=== PATIENT | female | born 2005 | race African-American/Black ===

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

== ENCOUNTER 2023-01-21 07:02 | Outpatient (CLI) | payer MEDICAID, SELFPAY ==
--- NOTE | 2023-01-21 07:00 | MR_ITS ---
WS: [id number] MRI RIGHT KNEE NONCONTRAST TECHNIQUE: Axial PD, coronal PD fat sat, coronal PD, sagittal PD, and sagittal PD fat-sat images obta ined. CLINICAL INFORMATION: S83.8X1A - Sprain of other specified parts of right knee,... COMPARISON: None. FINDINGS: Distal quadriceps and patella tendons are intact. High-grade tear of the ACL with a few normal fibers visualized distally. Edema along the ACL tunnel. Normal PCL. ACL contusion pattern involving the anterolateral femoral condyle and posterior lateral tibial platea u. Additional contusion involving the posterior medial tibial plateau. Tiny radial tear involving the anterior horn lateral meniscus. Medial meniscus appears intact. Small suprapatellar effusion. Normal patella. Normal medial and lateral patellar retinaculum. Small suprapatellar effusion. Normal medial and lateral collateral ligaments. Normal popliteal fossa. MR/MR knee RT wo con* [id number] IMPRESSION: 1. High-grade tear of the ACL. Normal PCL. 2. ACL contusion pattern involving the anterolateral femoral condyle and poste rior lateral tibial plateau. Additional contusion involving the posterior media l tibial plateau. 3. Tiny radial tear involving the anterior horn lateral meniscus. Normal media l meniscus. 4. Normal medial and lateral collateral ligaments. Outbridge grading: grade I: focal areas of hyperintensity with normal contour
== END 2023-01-21 07:03 | disposition home or self-care (01) ==
LOC: RAD 07:05
PROVIDERS: PCP Family Medicine; Visit Provider Student in an Organized Health Care Education/Training Program
DX: S83.8X1A Sprain of other specified parts of right knee, initial encounter (principal); S83.281A Other tear of lateral meniscus, current injury, right knee, initial encounter; X58.XXXA Exposure to other specified factors, initial encounter
CPT/HCPCS: 73721

== ENCOUNTER 2023-01-26 15:42 | Outpatient (CLI) | payer MEDICAID, SELFPAY | END 2023-01-26 15:43 | disposition home or self-care (01) | LOC: SPT 15:42 | PROVIDERS: PCP Family Medicine; Visit Provider Student in an Organized Health Care Education/Training Program | DX: Z46.89 Encounter for fitting and adjustment of other specified devices (principal); S83.511D Sprain of anterior cruciate ligament of right knee, subsequent encounter; X58.XXXD Exposure to other specified factors, subsequent encounter | CPT/HCPCS: 97760; L1832 ==

== ENCOUNTER 2023-02-16 06:00 | Outpatient (RCR) | payer MEDICAID, SELFPAY | END 2023-03-17 23:59 | disposition home or self-care (01) | LOC: GPT 06:00 | PROVIDERS: PCP Family Medicine; Visit Provider Student in an Organized Health Care Education/Training Program | DX: S83.281A Other tear of lateral meniscus, current injury, right knee, initial encounter (principal); S83.241A Other tear of medial meniscus, current injury, right knee, initial encounter; X58.XXXA Exposure to other specified factors, initial encounter | CPT/HCPCS: 97161 ==

== ENCOUNTER 2023-02-16 06:00 | Outpatient (RCR) | payer MEDICAID, SELFPAY | END 2023-03-17 23:59 | disposition home or self-care (01) | LOC: GPT 06:00 | PROVIDERS: Visit Provider Student in an Organized Health Care Education/Training Program | DX: Z48.89 Encounter for other specified surgical aftercare (principal) | CPT/HCPCS: 97161 ==

== ENCOUNTER 2023-03-01 11:40 | Outpatient (CLI) | payer MEDICAID, SELFPAY ==
[2023-03-01 12:53] LABS: Chol HDL Ratio 4.86 mg/dL (0.0-4.40); Cholesterol 204 mg/dL (0-200); Estmated Average Glucose 100; HDL Cholesterol 42 mg/dL (60-100); Hemoglobin A1C 5.1 % (4.0-6.0); LDL Cholesterol Calculated 127 mg/dL (50-170); LDL HDL Ratio 3.02 RATIO (0.00-3.22); Triglycerides 174 mg/dL (0-150)
== END 2023-03-01 11:41 | disposition home or self-care (01) ==
PROVIDERS: PCP Family Medicine; Visit Provider Nurse Practitioner
DX: Z79.899 Other long term (current) drug therapy (principal); T43.501A Poisoning by unspecified antipsychotics and neuroleptics, accidental (unintentional), initial encounter
CPT/HCPCS: 36415; 80061; 83036

== ENCOUNTER 2023-03-07 06:11 | Day surgery (SDC) | payer MEDICAID, SELFPAY ==
[2023-02-28 08:20] VITALS: BMI 36.0
[2023-03-07] VITALS (11 sets, daily range): BP systolic 96–156; BP diastolic 70–94; PULSE 82–100; RESP 12–20; TEMP 36.1–37; O2SAT 94–98
[2023-03-07 06:45] LABS: OR HCG Qualitative Urine Negative (Negative)
[2023-03-07] MEDS: ketorolac 30 mg/mL INJ IVP (06:53)
[2023-03-07] MEDS: sodium chloride 0.9% 1,000 ML 30 ML IV (06:53)
[2023-03-07] MEDS: acetaminophen 1,000 MG/100 ML PIGGYBACK 400 MG IV (06:54)
[2023-03-07] MEDS: scopolamine 1.5 Patch 1 PATCH TRANSDERMA (06:55)
--- NOTE | 2023-03-07 07:00 | P.HPUD_ITS ---
Surgery/Procedure H&P Update DATE OF PROCEDURE: March 07, 2023 DATE H&P PERFORMED: 03/03/23 CHANGES TO PREVIOUS DOCUMENTATION: None. No change in HPI since office visit on 03/03/2023. Patient's regained range of motion minimal swelling she continues to have a positive Porfirio's as well as pain over the medial and lateral joint line. Plan to proceed with right knee diagnostic and surgical arthroscopy with arthroscopic assisted ACL reconstruction with bone patellar tendon bone autograft, lateral meniscus repair versus partial lateral meniscectomy as well as possible medial meniscus repair. Patient understands the risk benefits complication alternatives with surgery and elects to proceed. Patient understands and agrees with current plan. All questions answered. PREOP DIAGNOSIS: Right knee ACL tear, lateral meniscus tear, medial meniscus tear PRIMARY INDICATION FOR PROCEDURE: Right knee ACL tear, lateral meniscus tear and medial meniscus tear PLANNED PROCEDURE: Operation Date: 03/07/23 08:05 Proposed Procedures p ACL Repair Anterior Cruciate Ligament Reconstruction Right:[id number],S83.511A, S83.281A,S83.241A(Right) - Prince Renee DO
[2023-03-07] MEDS: clindamycin 300 MG/50 ML PREMIX 100 MG IV (08:12)
[2023-03-07] MEDS: clindamycin 600 MG/50 ML PREMIX 100 MG IV (08:13)
--- NOTE | 2023-03-07 08:30 | ANES.PREANE2 ---
Pre-Anesthetic Assessment Height/Weight: Height 1.7 m Weight 104.326 kg Temp Pulse Resp BP Pulse Ox O2 Del Method 97.0 F L 82 16 119/72 97 Room Air 03/07/23 06:40 03/07/23 06:40 03/07/23 06:40 03/07/23 06:40 03/07/23 06:40 03/07/23 06:40 Preop Diagnosis: Right knee ACL tear, lateral meniscus tear, medial meniscus tear Operation Date: 03/07/23 08:05 Proposed Procedures p ACL Repair Anterior Cruciate Ligament Reconstruction Right:[id number],S83.511A,S83.281A,S83.241A(Right) - Prince Thelma, Familial anesthetic complications: none Was Beta Jennie taken within 24 hours: N/A Was Clonidine taken within 24 hours: N/A Last intake: Intake Last Liquid Date 03/06/23 Last Liquid Time 23:00 Last Solid Date 03/06/23 Last Solid Time 23:00 Social Tobacco and No alcohol mirza Exam alert, oriented x 3, clear to auscultation bilaterally and regular rate & rhythm Airway Submandibular: within normal limits Cervical ROM: within normal limits Mallampati: Class II Dentition: full Metabolic Morbid Obesity Neuropsych Bipolar Anesthetic Plan ASA status: 2 Anesthesia: General Medications/Allergies Home Medications Medication Instructions Recorded Confirmed Last Taken Type shanel brace #1 ea 01/26/23 01/26/23 Unknown Rx quetiapine 50 mg tablet (Seroquel) 50 mg PO .HS #30 tabs 02/23/23 03/07/23 03/06/23 Rx mecobalamin (vitamin B12) 500 mcg 500 mcg PO DAILY 03/03/23 03/07/23 03/06/23 History chewable tablet Allergies Allergy/AdvReac Type Severity Reaction Status Date / Time amoxicillin AdvReac Mild ADR-Itching Verified 03/07/23 06:37 Current Medications Generic Name Dose Route Start Last Admin Trade Name Freq PRN Reason Stop Dose Admin Sodium Chloride 1,000 mls @ 30 mls/hr 03/07/23 06:45 03/07/23 06:53 Sodium Chloride 0.9% IV 03/08/23 06:44 30 mls/hr .Q24H BETTY Administration PFSH Anesthesia Medical History Bipolar 2 disorder Cannabis use disorder, mild, abuse Nicotine use disorder Psychiatric care Family History Grandmother Diabetes paternal Denies family history of Colon cancer Ovarian cancer Clotting disorder Heart disease Hyperlipidemia Breast cancer Anesthesia complication Bleeding disorder Hypertension Uterine cancer Thyroid condition Stroke Social History Substance/Drug Use: current Substance/Drug use frequency: daily Sexually active: Yes How many partners: 2 Are you practicing safe sex: No Current gender identity: Female Female Reproductive History Date of last menstrual period: 02/20/23 Data Anesthesia Blood Bank 03/07/23 06:49 Blood Type O Positive Rho(D) Type Positive Antibody Screen Negative Cardiac Studies: No Data to Display
--- NOTE | 2023-03-07 11:12 | PC.NURSE ---
Addendum entered by Ryann Vitale 03/07/23 11:24: ice pack applied Original Note: Pt arrived to PACU, resting comfortably, dressing and brace to right knee C/D/I, right toes w/d, cap refill < 3 seconds, good pedal pulse noted. RLE elevated on pillow.
[2023-03-07] MEDS: fentaNYL 50 mcg/mL INJ 2mL IVP (11:25)
--- NOTE | 2023-03-07 11:25 | PM.OP2 ---
Brief Operative Note Date of procedure: 03/07/23 Pre-op diagnosis: Right knee complete ACL rupture, lateral meniscus tear, medial meniscus tea Post-op diagnosis: other (Right knee complete ACL tear, lateral meniscus tear) Procedure Done: Right knee diagnostic and surgical arthroscopy with partial lateral meniscectomy and limited synovectomy Right knee diagnostic and surgical arthroscopy, arthroscopic assisted ACL reconstruction with bone patellar tendon bone autograft Surgeon: Prince Renee Estimated blood loss (mL): 20 Complications: none Post-op Plan: Patient was taken to PACU in stable condition recovering well pain controlled. Will receive appropriate discharge instructions as well as pain medication postoperatively. Given no meniscal repair patient will be allowed full knee range of motion. We will keep her toe-touch weightbearing for the first 2 weeks. Ana knee brace on and in place. Patient will receive postoperative DVT prophylaxis of daily aspirin 81 mg. We will follow-up in the orthopedic office in 2 weeks. Condition: stable Disposition: same day Coding Level of Care Code Acute Code for Charla Lira
--- NOTE | 2023-03-07 11:25 | PM.PACU ---
PACU note Narrative: Patient seen evaluated PACU patient recovering well pain controlled. Dressings on in place clean dry intact ACL [place] brace on and in place locked in full extension at this time therapy will go over details on how to manage brace to unlocked for full range of motion. Patient is able to wiggle toes plantarflex and dorsiflex ankle sensation is intact to light touch distally distal pulses are palpable compartments are soft compressible. Exam: awake Disposition: discharged
--- NOTE | 2023-03-07 11:25 | PM.OP ---
Operative Report Date of procedure: March 07, 2023 Pre-op diagnosis: Preop Diagnosis Right knee ACL tear, lateral meniscus tear, medial meniscus tear Procedure: Post-op diagnosis: Right knee complete ACL rupture Right Knee lateral meniscus tear Procedure done: Right knee diagnostic and surgical arthroscopy with arthroscopic assisted ACL reconstruction with bone patellar tendon bone autograft Right knee diagnostic and surgical arthroscopy with partial lateral meniscectomy and limited synovectomy Implants: Arthrex 8 mm x 30 mm bio composite screw & 7 mm x 30 mm bio composite screw. Arthrex 4.75 peek knotless swivel lock with #2 blue suture tape for internal brace Surgeon: Prince Renee DO Anesthesia: General Estimated blood loss (mL): 20mL Tourniquet time: 107minutes IV fluids: 1000 mL Complications: None Findings: See operative report narrative Condition: stable Disposition: same day Brief History: Patient is a pleasant 17-year-old Female sustained a injury to his right knee with a lateral meniscus tear and complete ACL tear.? Reviewing of MRI there is concern for possible medial meniscus tear as well. Given these findings her young age and activity level through shared decision making she would like to proceed with surgical intervention I feel that her best interest for longevity preservation of her biomechanics and cartilage would recommend surgical intervention of a right knee diagnostic and surgical arthroscopy with arthroscopic assisted ACL reconstruction with bone patellar tendon bone autograft, and partial lateral meniscectomy versus repair, possible medial meniscus repair. She has been worked up in the outpatient setting we had her undergo therapy for prehab and patient has regained range of motion. Patient understands the risk benefits complications alternatives to surgical nonsurgical treatment options.? Discussed in detail with patient and family and at this point time shared decision making they agree to proceed with surgical intervention.? All questions answered.? Consent obtained in office. Procedure: Patient seen and evaluated the preoperative holding area.? Consent was reviewed with patient.? Correct extremity was then marked.? Patient was then seen and worked up and evaluated by preoperative team as well as anesthesia department.? Once cleared for surgery was taken back to the operative suite.? Patient was placed onto the operative table and underwent anesthesia per the anesthesia department.? The right lower extremity was then placed into a nonsterile tourniquet to the right thigh.? Appropriate positioning was then performed all bony prominences were well-padded patient was appropriately secured to the bed.? The foot of the table was allowed to drop with the right knee free suspended for appropriate manipulation for ACL reconstruction. Examination under anesthesia demonstrates a positive Porfirio's with a soft endpoint noticeable laxity. Patient had a subtle positive pivot shift. At this point time the right lower extremities prepped and draped in standard orthopedic fashion.? Patient received appropriate preoperative antibiotics.? Final timeout performed. Esmarch tourniquet used exsanguinate the right lower extremity.? Tourniquet inflated to 250 mmHg. Procedure started with BTB autograft harvest.? Standard anterior midline incision was made.? Sharp scalpel dissection full-thickness skin flaps dissection straight over the peritenon. Peritenon was incised longitudinally with Metzenbaum scissors and created mobile flaps for later closure.? Next I then marked out the appropriate bone plugs of the patella as well as the tibial tubercle with plan for 20 mm of the patella & 25 mm of the tibial tubercle.? 10 mm with of tendon was then marked and then utilizing 15 blade scored my bone plugs and then harvested my BTB graft.? Utilized oscillating saw and osteotome to deliver my bone plugs I did drill tunnels into these for passing of suture.? BTB was then harvested atraumatically.? This was taken to the back table appropriately sized the femoral bone plug from the patella measured roughly 20 mm x 9mm.? The tibial plug was 25 mm x 10mm. Total graft length 90mm. 45 mm of tendinous portion. Suture was appropriately passed through the bone plugs. In order to augment fixation utilizing a Arthrex internal brace I then shuttled a #2 fiber tape internal brace suture by more proximal portion of my femoral plug as well as passed this through the tendinous portion of the ACL graft and utilize this as an internal brace for augmented fixation. The graft was then wrapped in a damp lap and was protected on the back table.? Next I proceeded with closure of patellar tendon this was done with 0 Vicryl suture.? Next I proceeded with my arthroscopy of the right knee.? Subsequently evaluated the patellofemoral joint which showed pristine cartilage then moved towards the medial compartment which also had proceed articular cartilage. After establishing my medial portal utilizing outside in technique with spinal needle and probed the medial meniscus and root and this was all found to be intact and no evidence of medial meniscus tear was noted. Intercondylar notch showed the ACL remnant of the footprint of the tibia as well as empty lateral wall consistent with complete ACL rupture. Intact PCL was noted. Then inspected the lateral meniscus which was found to have a very small radial tear in the white white zone at the mid body of the lateral meniscus. This tear would not be repairable and as a result I elected to proceed with a partial lateral meniscectomy this was performed with an arthroscopic shaver and basket forceps which took the tear to stable meniscal tissue and appropriate contouring of the lateral meniscus. This completed my partial lateral meniscectomy. The lateral meniscus cartilage was found to be pristine and intact with no evidence of chondral injury. Once again I inspected the medial lateral gutters these were free of loose bodies and reentered into the patellofemoral space which again confirmed pristine articular cartilage of the patellofemoral joint. I utilized the arthroscopic shaver to perform a limited synovectomy of the patellofemoral space as well as the intercondylar notch for appropriate visualization and graft passage. This point time we proceeded with our tunnel preparation.? Introduced our tibial guide this was set to appropriate guide depth given the graft measurements.? Guidepin was then placed we utilized our midline incision in order for tibial tunnel placement.? Once satisfied with our guide pin placement we then used our 10 mm cannulated reamer to ream our tibial tunnel.? Tibial reamings were then saved for later bone grafting of the donor bone plug sites. Satisfied with our tunnel placement we utilized shaver to remove all bony debris We then plugged the tibial tunnel and then proceeded with femoral preparation.? Introduced our femoral tunnel guide placed this at appropriate anatomic position with roughly 2 mm of backwall left.? We made a incision over the lateral aspect lateral femoral condyle full visualization for interference screw placement.? Made incision through skin subcutaneous tissue and then longitudinally split the IT band.? We then utilized an elevator to clear the periosteum for direct visualization of our guide once our guide was in appropriate placement and anatomic ACL position we then advanced our guidepin confirmed appropriate placement and then reamed with a 9 mm reamer.? We utilized the shaver to remove remove all debris.? Next we shuttled passing suture from the femoral tunnel down to the tibial tunnel.? Next BTB autograft was then taken from the back table placed in shuttling suture and was shuttled this into appropriate position.? I made sure this was appropriately centered with bone plugs from feeling both in visualizing it in the femur and tibial tunnel and this iwas confirmed under arthroscope visualization.? I had my market research assistant hold back tension on the tibial bone plug while I had direct visualization of femoral bone plug.? Knee was placed in roughly 115 degrees of flexion at Appropriate tension on my sutures of the femur placed my guidepin appropriately tapped and then placed my bio composite interference screw.? This had excellent fixation.? Next I appropriately ranged/cycled and tensioned the graft with over 30 cycles.? This point time I then brought in a Vázquez stand and held the knee in roughly 20 to 30 degrees of flexion with axial loading.? Maintaining excellent tension.? Then visualize tibial bone plug within my tibial tunnel inserted my guidewire appropriately tapped and then introduced bio composite interference screw which had excellent fixation.? This point time I then tested our fixation with a Porfirio's and had solid fixation with firm endpoint.? In order to augment my fixation the internal brace suture was then loaded onto a 4.75mm peek swivel lock suture anchor. I then subsequently drilled tapped and impacted my internal brace fixation distal to mid tibial tunnel for augmented fixation. This had excellent stability and fixation. At this point time visualized our reconstruction to the arthroscope this was probed had appropriate tension with no laxity.? Patient had a negative pivot shift as well as negative Porfirio's with firm endpoint.? Excess sutures from both femoral and tibial tunnels were then removed.? All excess fluid was evacuated out of the knee trochars removed.? Tourniquet deflated.? All wounds were thoroughly irrigated. I then utilized the tibial tunnel bone graft as well as [place] DBM putty with cancellous chips for the donor plug sites. Anterior incision was closed in layered fashion with 0 Vicryl suture 2-0 Vicryl and Monocryl suture and Steri-Strips..? Layered closure of the lateral incision with 0 Vicryl ,2-0 Vicryl and Monocryl suture and Steri-Strips.? Portals were closed with interrupted Monocryl suture and Steri-Strips.? Incisions were appropriately dressed with 4 x 4's ABD Curlex soft roll and Jarrdo wrap and ACL brace was then reapplied.? Patient was then awakened from anesthesia and taken to PACU in stable condition.? Disposition: Patient recover in PACU.? Given appropriate discharge directions as well as pain medication DVT prophylaxis.? Patient will be TTWB using crutches.patient has postoperative ACL Ana brace on in place allow for full range of motion. Patient will follow postoperative ACL reconstruction protocol with PT. Patient understand with any questions or concerns and contact the office.? We will see patient back in the office in 2 weeks.
[2023-03-07] MEDS: HYDROcodone-acetaminophen 5-325 mg Tablet 1 TAB PO (12:13)
--- NOTE | 2023-03-07 17:04 | ANE.PACU2 ---
Inpatient post-anesthesia follow up: Airway intact: Yes Vital signs: Temperature 98.6 F Pulse Rate 94 Respiratory Rate 20 Blood Pressure 96/72 Pulse Oximetry 98 Oxygen Delivery Me thod Room Air Oxygen Flow Rate Fraction of Inspir ed Oxygen Hydration adequate: Yes Nausea and vomiting: No Pain level: 3 Mental status: Baseline
== END 2023-03-07 12:31 | disposition home or self-care (01) ==
PROVIDERS: PCP Family Medicine; Visit Provider Student in an Organized Health Care Education/Training Program
PROC: (CPT 27407; principal; 2023-03-07 08:05)
DX: S83.281A Other tear of lateral meniscus, current injury, right knee, initial encounter (principal); S83.511A Sprain of anterior cruciate ligament of right knee, initial encounter; E66.01 Morbid (severe) obesity due to excess calories; Z68.36 Body mass index [BMI] 36.0-36.9, adult; Z88.0 Allergy status to penicillin; X58.XXXA Exposure to other specified factors, initial encounter
CPT/HCPCS: 29881; 29888; 36415; 84703; 86850; 86900; C1713; J0131; J1100; J1170; J1885; J2250; J2405; J2704; J3010; J3490; J7030

== ENCOUNTER 2023-03-18 06:00 | Outpatient (RCR) | payer MEDICAID, SELFPAY | END 2023-04-17 23:59 | disposition home or self-care (01) | LOC: GPT 06:00 | PROVIDERS: PCP Family Medicine; Visit Provider Student in an Organized Health Care Education/Training Program | DX: Z48.89 Encounter for other specified surgical aftercare (principal) | CPT/HCPCS: 97110; 97112; 97116; 97140; 97530 ==

== ENCOUNTER → 2023-03-23 13:35 | Outpatient (BNVA) | payer MEDICAID, SELFPAY | PROVIDERS: PCP Family Medicine; Visit Provider Student in an Organized Health Care Education/Training Program | DX: Z98.890 Other specified postprocedural states (principal); X58.XXXA Exposure to other specified factors, initial encounter; S83.241A Other tear of medial meniscus, current injury, right knee, initial encounter; S83.511A Sprain of anterior cruciate ligament of right knee, initial encounter | CPT/HCPCS: 73562 ==

== ENCOUNTER 2023-04-18 06:00 | Outpatient (RCR) | payer MEDICAID, SELFPAY | END 2023-05-18 23:59 | disposition home or self-care (01) | LOC: GPT 06:00 | PROVIDERS: PCP Family Medicine; Visit Provider Student in an Organized Health Care Education/Training Program | DX: Z47.89 Encounter for other orthopedic aftercare (principal) | CPT/HCPCS: 97110; 97112; 97140 ==

== ENCOUNTER 2023-10-22 20:47 | Emergency (ER) | payer MEDICAID, SELFPAY ==
[2023-10-22 20:58] VITALS: BP 129/84; PULSE 87; RESP 16; TEMP 37.6; O2SAT 99; BMI 36.5
--- NOTE | 2023-10-22 21:20 | W.ED.URI ---
HPI - URI/Sore Throat General: Chief Complaint: Upper Respiratory Infection Stated Complaint: cough, sob, Time Seen by Provider: 10/22/23 21:20 History of Present Illness: 17-year-old female comes in today with bilateral ear pain and throat pain along with cough. Patient reports she has been ill for about 10 days. Patient was seen about a week ago and was told she had a little bit of fluid on her ears and just recommended nasal spray and antihistamines. Patient comes in today for persistent symptoms with increasing ear discomfort and some swelling in her neck. Patient appears nontoxic. No obvious deformity or swelling is noted on initial visualization. Review of Systems General: Reports: 10 or more systems reviewed and unremarkable except in HPI and below PFSH ED PFSH: Medical History Nicotine use disorder Bipolar 2 disorder Psychiatric care Cannabis use disorder, mild, abuse Family History Grandmother Diabetes paternal Denies family history of Colon cancer Ovarian cancer Clotting disorder Heart disease Hyperlipidemia Breast cancer Anesthesia complication Bleeding disorder Hypertension Uterine cancer Thyroid disease Stroke Social History (Updated 08/24/23 @ 09:57 by Shonda Butt LPN) Smoking and tobacco/nicotine status: current every day tobacco/nicotine user e-cigarettes Alcohol intake: never Substance/Drug Use: current Substance/Drug use frequency: daily Sexually active: Yes How many partners: 2 Are you practicing safe sex: No Current gender identity: Female Physical Exam HENMT: COMMON NORMALS: atraumatic HEAD & SCALP: atraumatic NOSE: Nasal discharge present TYMPANIC MEMBRANE: TM abnormal TM laterality: bilateral bulging and dull THROAT: posterior oropharynx abnormal cobblestoning Neck/C-Spine: COMMON NORMALS: full ROM and no meningeal signs Lymph: LYMPHATIC: lymphadenopathy (Anterior cervical) Resp: COMMON NORMALS: normal respiratory effort and clear to auscultation bilaterally AUSCULTATION: clear to auscultation bilaterally Cardio: COMMON NORMALS: regular rate and regular rhythm RATE: regular rate RHYTHM: regular rhythm GI: COMMON NORMALS: Soft to palpation and non-tender PALPATION: Yes Soft to palpation Back/Pelvis: COMMON NORMALS: thoracic and lumbar spine normal to inspection Extremity: COMMON NORMALS: full ROM Neuro: MENINGEAL SIGNS: Yes no meningeal signs Skin: COMMON NORMALS: turgor normal GENERAL SKIN EXAM: turgor normal Course Vital Signs: Vital signs: Vital Signs Temperature 99.7 F H 10/22/23 20:58 Pulse Rate 87 10/22/23 20:58 Respiratory Rate 16 10/22/23 20:58 Blood Pressure 129/84 10/22/23 20:58 Pulse Oximetry 99 10/22/23 20:58 MDM - URI/Sore Throat Medical Decision Making 17-year-old female comes in today for persistent upper respiratory symptoms. On exam patient has bilateral TMs are erythematous and dull. Posterior pharynx has cobblestoning. Patient has nasal drainage. Lungs are clear to auscultation. Differential diagnosis includes rhinosinusitis, otitis media, bronchitis, upper respiratory infection, viral syndrome. Reviewed exam with patient with recommendations for treatment with doxycycline and 1 dose of dexamethasone 10 mg. This was recommended due to persistent symptoms longer than 10 days. Patient reported understanding of care plan need for follow-up or return to the ER. No radiology studies performed this visit Discharge Plan Discharge Patient Disposition: Home Clinical Impression: Sinusitis Qualifiers: Sinusitis location: unspecified location Chronicity: acute Recurrence: not specified as recurrent Qualified Code(s): J01.90 - Acute sinusitis, unspecified Otitis media Qualifiers: Otitis media type: serous Chronicity: acute Laterality: bilateral Recurrence: not specified as recurrent Qualified Code(s): H65.03 - Acute serous otitis media, bilateral Condition: Stable Prescriptions: New doxycycline hyclate 100 mg tablet 100 mg PO BID 7 Days Qty: 14 0RF No Action (DME) shanel brace See Rx Instructions .Route .MEDSUPPLY Qty: 1 0RF Rx Instructions: As directed medroxyprogesterone [Depo-Provera] 150 mg/mL suspension IM .every 3 months Discharge Orders: Discharge ED (Routine); Ordered 10/22/23 Ordered By: James Pineda Referrals: Tulio Kenny MD [Primary Care Provider] - Discharge Diet: Usual diet Discharge Activity: Increase activity as tolerated Patient Instructions: Sinusitis (ED) Activity Restrictions/Additional Instructions: Drink plenty of fluids. Take antibiotics as directed. Follow-up with primary care in 1 week for recheck. Return to ED for new concerns. Coding Level of Care Code ED Associate Art Director for [employer]
[2023-10-22] MEDS: doxycycline 100 mg Tablet PO (21:51)
[2023-10-22] MEDS: dexamethasone 10 mg/mL INJ IM (21:51)
[2023-10-22 21:52] VITALS: BP 123/78; PULSE 85; O2SAT 100
== END 2023-10-22 21:57 | disposition home or self-care (01) ==
PROVIDERS: Emergency Provider Nurse Practitioner Family; PCP Family Medicine
DX: J01.90 Acute sinusitis, unspecified (principal); H65.03 Acute serous otitis media, bilateral; F17.290 Nicotine dependence, other tobacco product, uncomplicated
CPT/HCPCS: 96372; 99284; J1100

== ENCOUNTER 2023-11-23 18:14 | Emergency (ER) | payer MEDICAID, SELFPAY ==
[2023-11-23 18:20] VITALS: BP 123/71; PULSE 100; RESP 16; TEMP 36.9; O2SAT 99; BMI 30.4
--- NOTE | 2023-11-23 18:28 | XRR_ITS ---
PROCEDURE INFORMATION: Exam: XR Chest Exam date and time: 11/23/2023 7:01 PM Age: 18 years old Clinical indication: Cough TECHNIQUE: Imaging protocol: Radiologic exam of the chest. Views: 1 view. COMPARISON: CR XR cervical spine 4-5V [id number] 09/19/2022 1:52 PM FINDINGS: Lungs: Unremarkable. No consolidation. Pleural spaces: Unremarkable. No pleural effusion. No pneumothorax. Heart/Mediastinum: Unremarkable. No cardiomegaly. Bones/joints: Unremarkable. XR/XR chest 1V portable [id number] IMPRESSION: No acute findings.
--- NOTE | 2023-11-23 18:29 | ED_ITS ---
HPI - URI/Sore Throat General: Chief Complaint: Upper Respiratory Infection Stated Complaint: Chest Hurts\Fever\Sore Throat Time Seen by Provider: 11/23/23 18:28 History of Present Illness: 18-year-old female comes in today with c omplaints of chest discomfort when she takes a deep breath in. Patient appears nontoxic. Patient reports chills and feeling unwell. Patient appears in no pain. Review of Systems General: Reports: 10 or more systems reviewed and unremarkable except in HPI and below Resp: Reports: non-productive cough and pain on inspiration PFSH ED PFSH: Medical History Nicotine use disorder Bipolar 2 disorder Psychiatric care Cannabis use disorder, mild, abuse Family History Grandmother Diabetes paternal Denies family history of Colon cancer Ovarian cancer Clotting disorder Heart disease Hyperlipidemia Breast cancer Anesthesia complication Bleeding disorder Hypertension Uterine cancer Thyroid disease Stroke Social History (Updated 08/24/23 @ 09:57 by Shonda Butt LPN) Smoking and tobacco/nicotine status: current every day tobacco/nicotine user e- cigarettes Alcohol intake: never Substance/Drug Use: current Substance/Drug use frequency: daily Sexually active: Yes How many partners: 2 Are you practicing safe sex: No Current gender identity: Female Female Reproductive History: Date of last menstrual period: 11/23/23 Physical Exam Const: COMMON NORMALS: alert HENMT: COMMON NORMALS: normocephalic HEAD & SCALP: normocephalic Neck/C-Spine: COMMON NORMALS: full ROM Chest: COMMONS NORMALS: normal inspection of the chest Resp: COMMON NORMALS: normal respiratory effort and clear to auscultation bilaterally AUSCULTATION: clear to auscultation bilaterally Cardio: COMMON NORMALS: regular rate and regular rhythm RATE: regular rate RHYTHM: regular rhythm GI: COMMON NORMALS: Soft to palpation PALPATION: Yes Soft to palpation Back/Pelvis: COMMON NORMALS: thoracic and lumbar spine normal to inspection Extremity: COMMON NORMALS: no pedal edema Neuro: SENSORIUM/ORIENTATION: Yes alert Skin: COMMON NORMALS: turgor normal GENERAL SKIN EXAM: turgor normal Course Vital Signs: Vital signs: Vital Signs Temperature 98.4 F 11/23/23 18:20 Pulse Rate 100 11/23/23 18:20 Respiratory Rate 16 11/23/23 18:20 Blood Pressure 123/71 11/23/23 18:20 Pulse Oximetry 99 11/23/23 18:20 Oxygen Delivery Me thod Room Air 11/23/23 18:20 MDM - URI/Sore Throat Medical Decision Making 18-year-old female comes in today for complaints of cough, malaise, and pain with deep inspiration. Patient appears nontoxic. Respirations are even lungs are clear to auscultation. Skin is warm and dry. Differential diagnosis includes not limited to pneumonia, bronchitis, postviral cough, viral syndrome. Patient was negative for flu and COVID. Chest x-ray was unremarkable. Reviewed exam with patient with recommendations for treatment for viral syndrome. Patient was discharged home in stable condition. Lab Data Laboratory Results Influenza Type A Ag negative (Negative) 11/23/23 18:55 Influenza Type B Ag negative (Negative) 11/23/23 18:55 SARS-CoV-2 Ag (Rapid) negative (Negative) 11/23/23 18:55 XR interpretation done by ED provider, pending radiology final review Discharge Plan Discharge Patient Disposition: Home Clinical Impression: Viral infection Condition: Stable Prescriptions: New prednisone 20 mg tablet 20 mg PO DAILY 5 Days Qty: 5 0RF No Action (DME) shaneltrintiy pierson See Rx Instructions .Route .MEDSUPPLY Qty: 1 0RF Rx Instructions: As directed medroxyprogesterone [Depo-Provera] 150 mg/mL suspension IM .every 3 months Discharge Orders: Discharge ED (Routine); Ordered 11/23/23 Ordered By: James Pineda Referrals: Tulio Kenny MD [Primary Care Provider] - Discharge Diet: Usual diet Discharge Activity: Increase activity as tolerated Patient Instructions: Viral Syndrome (ED) Activity Restrictions/Additional Instructions: Drink plenty of water and fluids. Use acetaminophen and/or ibuprofen for pain. Take prednisone daily for the next 5 days to help with pain and inflammation. Follow-up with primary care in 3 to 5 days for recheck. Return to ED for worsening symptoms such as fever greater than 100.4, increasing shortness of breath, or new concerns. Coding Level of Care Code ED Data Power Consultant for Charla Lira
[2023-11-23 20:00] LABS: SARS Covid-2 Antigen negative (Negative)
[2023-11-23 20:01] LABS: Influenza A by IFA negative (Negative); Influenza B by IFA negative (Negative)
[2023-11-23] MEDS: predniSONE 20 mg Tablet PO (20:20)
[2023-11-23 20:27] VITALS: BP 118/71; PULSE 76; O2SAT 99
== END 2023-11-23 20:28 | disposition home or self-care (01) ==
PROVIDERS: Emergency Provider Nurse Practitioner Family; PCP Family Medicine
DX: B34.9 Viral infection, unspecified (principal); Z11.52 Encounter for screening for COVID-19; F17.290 Nicotine dependence, other tobacco product, uncomplicated
CPT/HCPCS: 71045; 87426; 87804; 99284; J7512

== ENCOUNTER 2023-12-11 18:32 | Emergency (ER) | payer MEDICAID, SELFPAY ==
[2023-12-11 18:53] VITALS: BP 109/74; PULSE 85; TEMP 36.8; O2SAT 98; BMI 31.3
[2023-12-11 18:58] VITALS: BP 155/99; O2SAT 97
--- NOTE | 2023-12-11 19:03 | W.ED.URI ---
HPI - URI/Sore Throat General: Chief Complaint: Upper Respiratory Infection Stated Complaint: sinus infection Time Seen by Provider: 12/11/23 18:53 Source: patient Mode of arrival: ambulatory Limitations: no limitations History of Present Illness: 18-year-old female states over last 2 days she has had sinus congestion along with sinus pain along with she states green nasal discharge. States she had a temperature of 100.9 this morning. Slight cough she denies any vomiting or diarrhea denies any severe headaches. Denies any worsening proving factors Associated symptoms: Reports fever(s) and sinus pain; Deny abdominal pain, chills, chest pain, diarrhea, headache(s), nausea or vomiting Review of Systems Const: Reports: fever(s); Denies: chills, body aches or change in appetite Eyes: Denies: eye discomfort ENMT: Reports: nasal discharge and sinus pain; Denies: throat pain or dental pain Card: Denies: chest pain Resp: Denies: dyspnea GI: Denies: abdominal pain, nausea, vomiting or diarrhea Musc: Denies: neck pain or back pain Skin/Breast: Denies: rash Neuro: Denies: headache(s) PFSH ED PFSH: Medical History Nicotine use disorder Bipolar 2 disorder Psychiatric care Cannabis use disorder, mild, abuse Family History Grandmother Diabetes paternal Denies family history of Colon cancer Ovarian cancer Clotting disorder Heart disease Hyperlipidemia Breast cancer Anesthesia complication Bleeding disorder Hypertension Uterine cancer Thyroid disease Stroke Social History Smoking and tobacco/nicotine status: current every day tobacco/nicotine user e-cigarettes Alcohol intake: never Substance/Drug Use: current Substance/Drug use frequency: daily Sexually active: Yes How many partners: 2 Are you practicing safe sex: No Current gender identity: Female Physical Exam Const: COMMON NORMALS: no acute distress, patient oriented x3 and healthy appearing HENMT: COMMON NORMALS: normocephalic and atraumatic HEAD & SCALP: normocephalic and atraumatic OTHER: Tenderness over maxillary and ethmoid sinus Eye: COMMON NORMALS: Equal, round and reactive pupils present and EOMs intact bilaterally PUPIL: Yes Equal, round and reactive pupils present Neck/C-Spine: COMMON NORMALS: full ROM and supple Chest: COMMONS NORMALS: normal inspection of the chest Resp: COMMON NORMALS: normal respiratory effort, No retractions, No use of accessory muscles and clear to auscultation bilaterally AUSCULTATION: clear to auscultation bilaterally Cardio: COMMON NORMALS: regular rate, regular rhythm and No murmurs present (Cardio) RATE: regular rate RHYTHM: regular rhythm Extremity: COMMON NORMALS: normal to inspection and full ROM Neuro: COMMON NORMALS: patient oriented x3, moves all extremities and no focal motor deficits Psych: COMMON NORMALS: mental status grossly normal, Normal thought process present and cooperative THOUGHT PROCESS: Normal thought process present Skin: COMMON NORMALS: no rashes or lesions noted and no wounds GENERAL SKIN EXAM: no rashes or lesions noted Course Vital Signs: Vital signs: Vital Signs Temperature 98.3 F 12/11/23 18:53 Pulse Rate 85 12/11/23 18:53 Blood Pressure 109/74 12/11/23 18:53 Pulse Oximetry 98 12/11/23 18:53 Oxygen Delivery Me thod Room Air 12/11/23 18:53 MDM - URI/Sore Throat Medical Decision Making Patient presents here with a likely sinusitis we will give her Decadron here prescribe her Keflex for home she is stable for discharge follow-up with PCP and return if worsening. Medical Records I reviewed the patient's medical records. No radiology studies performed this visit Discharge Plan Discharge Patient Disposition: Home Clinical Impression: Sinusitis Condition: Stable Prescriptions: New cephalexin 500 mg capsule 500 mg PO TID 7 Days Qty: 21 0RF No Action (DME) shanel brace See Rx Instructions .Route .MEDSUPPLY Qty: 1 0RF Rx Instructions: As directed medroxyprogesterone [Depo-Provera] 150 mg/mL suspension IM .every 3 months Discharge Orders: Discharge ED (Routine); Ordered 12/11/23 Ordered By: Emmanuelle Chapin Referrals: Tulio Kenny MD [Primary Care Provider] - 1-3 days Discharge Diet: Advance as tolerated Discharge Activity: Resume usual activity Patient Instructions: Sinusitis (ED) Coding Level of Care Code ED Well Flow Operator for Charla Lira
[2023-12-11 19:20] VITALS: BP 129/63; RESP 16; O2SAT 97
== END 2023-12-11 19:28 | disposition home or self-care (01) ==
PROVIDERS: Emergency Provider Emergency Medicine; PCP Family Medicine
DX: J32.9 Chronic sinusitis, unspecified (principal); F17.290 Nicotine dependence, other tobacco product, uncomplicated
CPT/HCPCS: 99283

== ENCOUNTER 2024-02-09 20:45 | Emergency (ER) | payer MEDICAID, SELFPAY ==
[2024-02-09 20:45] VITALS: BP 151/81; PULSE 97; RESP 16; TEMP 36.9; O2SAT 99
--- NOTE | 2024-02-09 21:39 | ED_ITS ---
HPI - URI/Sore Throat General: Chief Complaint: Upper Respiratory Infection Stated Complaint: Sore throat/ ear hurts Time Seen by Provider: 02/09/24 21:19 History of Present Illness: 18-year-old female [facility] with [facility] throat. This has been present for a few days now. He had some nausea no vomiting. No fevers. She has had some aching in her ear as well. Review of Systems Narrative: Constitutional symptoms: Negative except as documented in HPI. Skin symptoms: Negative except as documented in HPI. Eye symptoms: Negative except as documented in HPI. ENMT symptoms: Negative except as documented in HPI. Respiratory symptoms: Negative except as documented in HPI. Cardiovascular symptoms: Negative except as documented in HPI. Gastrointestinal symptoms: Negative except as documented in HPI. Genitourinary symptoms: Negative except as documented in HPI. Musculoskeletal symptoms: Negative except as documented in HPI. Neurologic symptoms: Negative except as documented in HPI. Psychiatric symptoms: Negative except as documented in HPI. Endocrine symptoms: Negative except as documented in HPI. PFS ED PFSH: Medical History Nicotine use disorder Bipolar 2 disorder Psychiatric care Cannabis use disorder, mild, abuse Family History Grandmother Diabetes paternal Denies family history of Colon cancer Ovarian cancer Clotting disorder Heart disease Hyperlipidemia Breast cancer Anesthesia complication Bleeding disorder Hypertension Uterine cancer Thyroid disease Stroke Social History Smoking and tobacco/nicotine status: current every day tobacco/nicotine user e- cigarettes Alcohol intake: never Substance/Drug Use: current Substance/Drug use frequency: daily Sexually active: Yes How many partners: 2 Are you practicing safe sex: No Current gender identity: Female Physical Exam Narrative: EXAM NARRATIVE: General: Alert, no acute distress. Skin: warm and dry Head: Normocephalic Neck: Trachea midline Eye: Extraocular movements are intact. Ears, nose, mouth and throat: Oral mucosa moist, some mild erythema and exudate over pharynx. She has had tonsillectomy. Respiratory: Respirations are non-labored Musculoskeletal: Normal ROM Neurological: Alert and oriented, No focal neurological deficit observed. Psychiatric: Cooperative, appropriate mood & affect. Course Vital Signs: Vital signs: Vital Signs Temperature 98.4 F 02/09/24 20:45 Pulse Rate 97 02/09/24 20:45 Respiratory Rate 16 02/09/24 20:45 Blood Pressure 151/81 02/09/24 20:45 Pulse Oximetry 99 02/09/24 20:45 Oxygen Delivery Me thod Room Air 02/09/24 20:45 MDM - URI/Sore Throat Medical Decision Making Assessment and plan: Pharyngitis -P.o. Decadron and Omnicef first dose in the emergency room as it is 10:00 at night - Discharged home - Discussed plan with patient. Answered any questions. - Evaluation and treatment of this problem were appropriate in the emergency setting. No radiology studies performed this visit Discharge Plan Discharge Patient Disposition: Home Clinical Impression: Pharyngitis Condition: Stable Prescriptions: New dexamethasone 6 mg tablet 6 mg PO DAILY 5 Days Qty: 5 0RF cefdinir 300 mg capsule 300 mg PO BID 7 Days Qty: 14 0RF No Action (DME) shanel brace See Rx Instructions .Route .MEDSUPPLY Qty: 1 0RF Rx Instructions: As directed medroxyprogesterone [Depo-Provera] 150 mg/mL suspension IM .every 3 months Discharge Orders: Discharge ED (Routine); Ordered 02/09/24 Ordered By: Miriam Coates Referrals: Tulio Kenny MD [Primary Care Provider] - 4-7 days Discharge Diet: Advance as tolerated Discharge Activity: Increase activity as tolerated Patient Instructions: Pharyngitis (ED) Activity Restrictions/Additional Instructions: Thank you for choosing [facility] for your healthcare needs today. Please realize this is an emergency room and that we are providing you with a medical screening exam and this may not be complete and all inclusive of all the testing and or work up that you may need to determine your ailment or severity of your illness. You have been screened and evaluated and felt safe for discharge. Health conditions do change or evolve sometimes and as such it is important that you follow up with your Primary Doctor to be re checked, 3-5 days is a general good time frame for follow up. You are always welcome to return to the ED for re assessment if your symptoms are worsening or you have new concerns Coding Level of Care Code ED Eyelet Operator for Charla Lira
[2024-02-09 21:49] LABS: Rapid Strep A Test Negative (Negative)
[2024-02-09] MEDS: cefdinir 300 MG CAPSULE PO (21:53)
[2024-02-09] MEDS: predniSONE 20 mg Tablet 60 MG PO (21:54)
[2024-02-09 22:02] VITALS: BP 134/75; PULSE 91; O2SAT 96
== END 2024-02-09 22:02 | disposition home or self-care (01) ==
PROVIDERS: Physician Assistant; Emergency Provider Emergency Medicine; PCP Family Medicine
DX: J02.9 Acute pharyngitis, unspecified (principal); F17.290 Nicotine dependence, other tobacco product, uncomplicated
CPT/HCPCS: 87081; 87880; 99283; J7512